=== PATIENT | female | born 1980 | race Caucasian/White ===

== ENCOUNTER 2018-01-31 06:07 | Inpatient (IN) | payer MEDICAID ==
[~2018-01-31] VITALS: Ht 170.2 cm; Wt 74.1 kg
[~2018-01-31 06:07] MED LIST: IBUP-1222 PO; OXYC-302 PO
[2018-01-31] MEDS ORDERED: OXYTOCIN 30U/ 0.9% NaCL 500ML 500 ML IV ONE (06:12)
[2018-01-31] MEDS: D5%-LACTATED RINGERS 1,000 ML IV SCH ×3 (06:12→22:12)
[2018-01-31] MEDS ORDERED: OXYTOCIN 30U/ 0.9% NaCL 500ML 500 ML ONE ×2 (06:26→15:02)
[2018-01-31] MEDS ORDERED: NEWBORN KIT ONE (06:26)
[2018-01-31] MEDS ORDERED: OXYTOCIN 30U/ 0.9% NaCL 500ML 500 ML IV PRN (06:28)
[2018-01-31] MEDS ORDERED: FENTANYL PF 100 MCG/2ML IV PRN (06:30)
[2018-01-31] MEDS ORDERED: FENTANYL PF 100 MCG/2ML IVPush PRN (06:30)
[2018-01-31 06:57] LABS: BASOPHILS # (AUTO) 0.02 x10^3/uL (0-0.1); BASOPHILS % (AUTO) 0 % (0-1); EOSINOPHILS # (AUTO) 0.07 x10^3/uL (0-0.4); EOSINOPHILS % (AUTO) 1 % (1-7); LYMPHOCYTES # (AUTO) 1.64 x10^3/uL (1-3.4); LYMPHOCYTES % (AUTO) 17 % (22-44); MD NO; MEAN CORPUSCULAR HEMOGLOBIN 31.7 pg (27.0-34.8); MEAN CORPUSCULAR HGB CONC 33.8 g/dL (32.4-35.8); MEAN CORPUSCULAR VOLUME 93.9 fL (80-100); MEAN PLATELET VOLUME 8.9 fL (7.4-10.4); MONOCYTES # (AUTO) 0.69 x10^3/uL (0.2-0.8); MONOCYTES % (AUTO) 7 % (2-9); NEUTROPHILS % (AUTO) 75 % (42-75); PLATELET COUNT 251 x10^3/uL (130-400); RED CELL DISTRIBUTION WIDTH 14.4 % (9.6-15.2)
[2018-01-31] MEDS ORDERED: FENTANYL PF 500 MCG, BUPIVACAINE/PF 0.5%, 30ML 62.5 ML in SODIUM CHLORIDE 0.9% 177.5 ML EPIDCONT SCH (08:25)
[2018-01-31] MEDS: LACTATED RINGERS 1,000 ML IV SCH ×5 (10:49→22:12)
[2018-01-31] MEDS ORDERED: LACTATED RINGERS 1,000 ML IVBOLUS PRN (12:00)
[2018-01-31] MEDS ORDERED: NALOXONE 0.4 MG/ML, 1ML IVPush PRN (12:00)
[2018-01-31] MEDS ORDERED: EPHEDRINE 50 MG/ML, 1ML IVPush PRN (12:00)
[2018-01-31] MEDS ORDERED: FENTANYL/BUPIV./NS/PF 250 ML EPIDCONT SCH (12:00)
[2018-01-31] MEDS ORDERED: ONDANSETRON 2MG/ML, 2ML IV PRN (15:00)
[2018-01-31] MEDS ORDERED: OXYcodone IR 5MG TABLET PO PRN (15:00)
[2018-01-31] MEDS ORDERED: MISOPROSTOL 200 MCG TABLET PR PRN (15:00)
[2018-01-31] MEDS ORDERED: ACETAMINOPHEN 325 MG TABLET PO PRN (15:00)
[2018-01-31] MEDS ORDERED: IBUPROFEN 600 MG TABLET ONE (15:01)
[2018-01-31] MEDS: IBUPROFEN 600 MG TABLET PO PRN ×2 (15:04→21:46)
[2018-01-31] MEDS: OXYTOCIN 30U/ 0.9% NaCL 500ML 500 ML IV SCH (15:38)
[2018-01-31 16:55] VITALS: BP 108/68
[2018-01-31 19:30] VITALS: BP 117/73
[2018-01-31] MEDS: DOCUSATE 100 MG CAPSULE PO PRN (21:52)
[2018-02-01 00:35] VITALS: BP 91/51
[2018-02-01] MEDS: OXYTOCIN 30U/ 0.9% NaCL 500ML 500 ML IV SCH ×2 (00:57→10:57)
[2018-02-01] MEDS: OXYcodone/APAP 5/325MG TABLET PO PRN ×2 (02:21→13:09)
[2018-02-01] MEDS: LACTATED RINGERS 1,000 ML IV SCH ×3 (04:00→12:00)
[2018-02-01 04:35] VITALS: BP 105/70
[2018-02-01] MEDS: IBUPROFEN 600 MG TABLET PO PRN ×2 (05:03→13:09)
[2018-02-01 05:43] LABS: BASOPHILS # (AUTO) 0.04 x10^3/uL (0-0.1); BASOPHILS % (AUTO) 0 % (0-1); EOSINOPHILS # (AUTO) 0.19 x10^3/uL (0-0.4); EOSINOPHILS % (AUTO) 2 % (1-7); LYMPHOCYTES # (AUTO) 1.76 x10^3/uL (1-3.4); LYMPHOCYTES % (AUTO) 16 % (22-44); MD NO; MEAN CORPUSCULAR HEMOGLOBIN 31.3 pg (27.0-34.8); MEAN CORPUSCULAR HGB CONC 33.4 g/dL (32.4-35.8); MEAN CORPUSCULAR VOLUME 93.7 fL (80-100); MONOCYTES # (AUTO) 0.77 x10^3/uL (0.2-0.8); MONOCYTES % (AUTO) 7 % (2-9); NEUTROPHILS # (AUTO) 8.45 x10^3/uL (1.8-6.8); NEUTROPHILS % (AUTO) 75 % (42-75); PLATELET COUNT 230 x10^3/uL (130-400); RED BLOOD COUNT 3.25 x10^6/uL (3.82-5.3); RED CELL DISTRIBUTION WIDTH 14.1 % (9.6-15.2)
[2018-02-01] MEDS: D5%-LACTATED RINGERS 1,000 ML IV SCH (06:12)
[2018-02-01 07:20] VITALS: BP 108/69
[2018-02-01] MEDS: DOCUSATE 100 MG CAPSULE PO PRN (07:42)
[2018-02-01] MEDS ORDERED: PRENATAL VIT/IRON/FA 1 EACH TABLET PO SCH (09:00)
[2018-02-01] MEDS ORDERED: IBUP-1222 PO (09:39)
[2018-02-01 11:45] VITALS: BP 107/74
== END 2018-02-01 14:06 | disposition home or self-care (01) | DRG 807 ==
LOC: LDIP 06:07 → 2NW 16:49
PROVIDERS: ADMIT Obstetrics & Gynecology; ATTEND Obstetrics & Gynecology
PROC: 10E0XZZ Delivery of Products of Conception, External Approach (ICD-10-PCS; principal; 2018-01-31)
PROC: 0HQ9XZZ Repair Perineum Skin, External Approach (ICD-10-PCS; 2018-01-31)
PROC: 3E0R3BZ Introduction of Anesthetic Agent into Spinal Canal, Percutaneous Approach (ICD-10-PCS; 2018-01-31)
PROC: 00HU33Z Insertion of Infusion Device into Spinal Canal, Percutaneous Approach (ICD-10-PCS; 2018-01-31)
PROC: 10907ZC Drainage of Amniotic Fluid, Therapeutic from Products of Conception, Via Natural or Artificial Opening (ICD-10-PCS; 2018-01-31)
DX: O70.0 First degree perineal laceration during delivery (principal); Z37.0 Single live birth; Z3A.39 39 weeks gestation of pregnancy
CPT/HCPCS: 36415; 85025; 86850; 86900; G0378; J3010; J3490; J2590; J7050; J7120